=== PATIENT | female | born 1980 | race Caucasian/White ===

== ENCOUNTER 2016-11-07 11:59 | Inpatient (IN) | payer BC, OTHER ==
[2016-11-07] MEDS ORDERED: TERBUTALINE 1 MG/ML VIAL SQ PRN (12:47)
[2016-11-07] MEDS ORDERED: METHYLERGONOVINE 0.2 MG/ML 1 ML AMP IM PRN (12:47)
[2016-11-07] MEDS ORDERED: CLINDAMYCIN 900 MG in DEXTROSE 5% IN WATER 50 ML IVPB STA ×2 (12:47)
[2016-11-07] MEDS ORDERED: LIDOCAINE 1% (PF) 10 MG/ML (30 ML SDV) SQ PRN (12:47)
[2016-11-07] MEDS ORDERED: OXYTOCIN 10 UNIT/ML 1 ML VIAL IM PRN (12:47)
[2016-11-07] MEDS ORDERED: CARBOPROST TROMETHAMINE 250 MCG/ML 1 ML AMP IM PRN (12:47)
[2016-11-07 12:58] LABS: Appearance,Urine Clear (Clear); Bilirubin,Urine Negative (Negative); Glucose,Urine (UA) Negative (Negative); Ketones,Urine Negative (Negative); Leukocyte Esterase,Urine Large (Negative); Nitrite,Urine Negative (Negative); Protein,Urine Negative (Negative); Specific Gravity,Urine 1.008 (1.001-1.035); Urobilinogen,Urine <2.0 mg/dL (<2.0)
[2016-11-07 12:59] LABS: Bacteria,Urine Rare /hpf; Mucus,Urine Rare /hpf; Particle Count 4206; RBC,Urine 2 /hpf (0-5); Squamous Epithelial Cell,Urine 1 /hpf (0-4); UA Billing (MACRO vs. MICRO) MICRO; WBC,Urine 11 /hpf (0-5)
[2016-11-07] MEDS ORDERED: LACTATED RINGERS 1,000 ML IV SCH (13:00)
[2016-11-07] MEDS ORDERED: OXYTOCIN 30 UNITS/500 ML NS 30 UNIT in SALINE 1 500ML.BAG IV SCH ×2 (13:00→20:30)
[2016-11-07] MEDS ORDERED: SODIUM CHLORIDE 0.9% IVPB ONE ×2 (13:12→13:30)
[2016-11-07] MEDS ORDERED: DESMOPRESSIN IVPB ONE ×2 (13:12→13:30)
[2016-11-07 13:27] LABS: Anisocytosis Slight; Basophils % (A) 0 %; CH 23.9; CHCM 29.9; Eosinophils # (A) 0.1 k/uL (0-0.7); Eosinophils % (A) 1 %; HDW 3.74; HGB 9.5 gm/dL (11.4-16.0); Hypochromasia Marked; Luc # (Auto) 0.19; Luc % (Auto) 3; Lymphocytes # (A) 1.1 k/uL (1.0-4.8); Lymphocytes % (A) 15 %; MCHC 29.7 g/dL (31.0-37.0); MCV 80.7 fL (80.0-100.0); Mean Platelet Volume 7.2; Microcytosis Slight; Monocytes # (A) 0.4 k/uL (0-1.0); Monocytes % (A) 5 %; Neutrophils # (A) 5.7 k/uL (1.3-7.7); Neutrophils % (A) 76 %; Poikilocytosis Slight; RBC 3.97 m/uL (3.80-5.40); RDW 18.2 % (11.5-15.5); WBC 7.4 k/uL (3.8-10.6); WBC (Perox) 7.97
[2016-11-07] MEDS ORDERED: SODIUM CHLORIDE 0.9% 1,000 ML IV SCH (13:30)
[2016-11-07 14:20] VITALS: BMI 23.8
[2016-11-07] MEDS ORDERED: ONDANSETRON 4 MG/2 ML VIAL IM STA (16:41)
[2016-11-07] MEDS ORDERED: ONDANSETRON 4 MG/2 ML VIAL IVP STA (16:49)
--- NOTE | 2016-11-07 16:59 | P.HPOB ---
History of Present Illness H&P Date: 11/07/16 Chief Complaint: Contractions, no care. This patient is a 36-year-old 7 para 5 female with stated estimated date of confinement of 11/02/2016 who presents to labor and delivery with complaints of regular painful contractions. Patient's history is such that she had limited care with Dr. Roman and he subsequently referred her to maternal- medicine and hematology due to her complicated , von Willebrand's disease. Patient states that she did not follow up with any of these instructions. Patient reports having type II von Willebrand's disease and had 5 other vaginal deliveries at a [facility] [place]. Patient is uncertain as to whether she received any DDAVP with these deliveries but does recall receiving a blood transfusion somewhere around her fourth due to severe anemia, not secondary to bleeding. Patient did have an appointment with Dr. Menendez in [place] however did not go to that appointment as well. Patient was in labor and delivery here on November [address] Schofield. At that time a limited pelvic ultrasound showed normal placenta but there was no comment on estimated weight or amniotic fluid. Patient' s cervix at that visit was 1 cm dilated and she is now 4-5 cm dilated and thought to be in active labor. Patient has not received any genetic testing. Review of Systems Constitutional: Denies chills, Denies fever Ears, nose, mouth and throat: Denies headache, Denies sore throat Cardiovascular: Denies chest pain, Denies shortness of breath Respiratory: Denies cough Gastrointestinal: Denies abdominal pain, Denies diarrhea, Denies nausea, Denies vomiting Genitourinary: Reports Menstruation: Reports amenorrhea Musculoskeletal: Denies myalgias Integumentary: Denies pruritus, Denies rash Neurological: Denies numbness, Denies weakness Hematologic/Lymphatic: Reports as per HPI (Patient states she has type II von Willebrand's disease) Past Medical History Past Medical History: Asthma Additional Past Medical History / Comment(s): Type II von Willebrand's disease, per patient. History of Any Multi-Drug Resistant Organisms: None Reported Past Surgical History: No Surgical Hx Reported Additional Past Surgical History / Comment(s): [place] tooth extraction. Past Anesthesia/Blood Transfusion Reactions: No Reported Reaction Past Psychological History: No Psychological Hx Reported Smoking Status: Never smoker Past Alcohol Use History: None Reported Past Drug Use History: None Reported Medications and Allergies Home Medications Medication Instructions Recorded Confirmed Type Vit#84/Iron/FA#1/Dha 1 each PO DAILY 08/24/16 11/07/16 History [Prenate Essential Softgel] Allergies Allergy/AdvReac Type Severity Reaction Status Date / Time aspirin Allergy Unknown Verified 11/01/16 23:57 ibuprofen [From Motrin] Allergy Unknown Verified 11/01/16 23:57 Penicillins Allergy Anaphylaxis Verified 11/01/16 23:57 shell fish Allergy Anaphylaxis Uncoded 11/01/16 23:57 Exam - Vital Signs Vital signs: Vital Signs Temp Pulse Resp BP 11/07/16 12:21 97.6 F 86 18 136/87 Intake and Output 11/07/16 11/07/16 11/07/16 06:59 14:59 22:59 Other: Weight 60 kg Patient Weight 11/08/16 06:59 Weight 60 kg - OBG Physical Exam Abdomen: bowel sounds normal, no diffuse tenderness, no bruit present, no guarding noted, no hepatomegaly, no splenomegaly, no mass Vagina: normal moisture, no discharge Cervix: no lesion (Cervix is 4-5 cm dilated 50% effaced -2 station vertex. Artificial rupture membranes shows meconium-stained fluid), no discharge Uterus: enlarged (Fundal height is consistent with a term ) Results Blood type is a positive, hemoglobin was 9.5. Result Diagrams: 11/07/16 13:10 Abnormal Lab Results - Last 24 Hours (Table) 11/07/16 11/07/16 Range/Units 12:20 13:10 Hgb 9.5 L (11.4-16.0) gm/dL Hct 32.0 L (34.0-46.0) % MCH 24.0 L (25.0-35.0) pg MCHC 29.7 L (31.0-37.0) g/dL RDW 18.2 H (11.5-15.5) % Urine Blood Small H (Negative) Ur Leukocyte Esterase Large H (Negative) Urine WBC 11 H (0-5) /hpf Urine Bacteria Rare H (None) /hpf Urine Mucus Rare H (None) /hpf Assessment and Plan (1) Non-compliant patient Narrative/Plan: This is a 36-year-old 7 para 5 female estimated gestational age approximately 40-5/7 weeks based on patient's history with active labor. Patient is been noncompliant with her care and has had limited or no care. Patient has known von Willebrand's disease. Patient also has meconium- stained fluid on artificial rupture. Group B strep status is unknown. I did discuss this patient with maternal medicine, Dr. Sarahy Horne, and with hematology. Plan at this time is to administer IV DDAVP at 0.3 mcgs per kilogram, IV antibiotics due to unknown group B strep status, and anticipate vaginal delivery. [employer] will be alerted and social worker psychiatric notified due to the lack of care. Status: Acute (2) Third trimester Status: Acute (3) Normal labor Status: Acute (4) Von Willebrand disease Status: Acute (5) Meconium in amniotic fluid affecting management of mother Status: Acute
[2016-11-07] MEDS ORDERED: BUTORPHANOL 1 MG/ML 1 ML VIAL IV ONE (17:35)
--- NOTE | 2016-11-07 19:33 | P.PROBDLV ---
Vaginal Delivery Note - . Vaginal Delivery Note: Normal spontaneous vaginal delivery viable female Apgars 9 and 9 delivery time is 1918 hrs. Please see dictated H&P on this patient's admission. Brief summary this is a 36 -year-old 7 para 5 female 40-5/7 weeks' gestation by stated last menstrual period who presents to labor and delivery with complaints of regular painful contractions. Patient has had no significant care in her has been complicated by von Willebrand's disease. Patient essentially has been noncompliant with all of her physician visits that she did have. On admission patient is 4-5 cm dilated. She is given 18 g of DDAVP per hematology and maternal- medicine recommendations. Patient is artificial rupture membranes for light meconium-stained fluid. She is also given IV clindamycin secondary to unknown group B strep status. Patient's labor does progress she received one dose of intrapartum Stadol for pain control. Patient gets to complete pushes the head to the perineum. Posterior perineum was supported and we have controlled delivery of the 's head over the intact perineum. The nurse art historian is present for delivery. With gentle downward traction we have delivery the anterior and posterior shoulder and rest this 's body. This is a vigorous viable female Apgars 9 and 9 delivery time is 1918 hrs. After delivery of the the umbilical cord is doubly clamped and cut. The placenta spontaneously delivered intact and immediately she is given one dose of Methergine and IV Pitocin to prevent any bleeding. Bleeding does appear normal and estimated blood loss is 150 mL. Inspection of the perineum shows a first-degree laceration the patient does refuse to have this repaired. I did discuss with her that this may not heal properly and she could have persistent pain if it heals improperly due to the lack of suture. Patient again is offered a repair and declines. At this point all counts are correct 3. There are no complications. and mother are stable delivery room.
[2016-11-07] MEDS ORDERED: Acetaminophen-Codeine 300-30mg TAB PO PRN ×2 (19:34)
[2016-11-07] MEDS ORDERED: ZOLPIDEM 5 MG TAB PO PRN (19:34)
[2016-11-07] MEDS ORDERED: IBUPROFEN 600 MG TAB PO PRN (19:34)
[2016-11-07] MEDS ORDERED: diphenhydrAMINE 25 MG CAP PO PRN (19:34)
[2016-11-07] MEDS ORDERED: SIMETHICONE 80 MG CHEWABLE PO PRN (19:34)
[2016-11-07] MEDS ORDERED: HYDROCORTISONE 2.5% RECTAL CREAM 30 GM TUBE RECTAL PRN (19:34)
[2016-11-07] MEDS ORDERED: diphenhydrAMINE 50 MG/ML 1 ML VIAL IVP PRN (19:34)
[2016-11-07] MEDS ORDERED: BENZOCAINE/MENTHOL SPRAY 1 GM/SPRAY AEROSOL TOPICAL PRN (19:34)
[2016-11-07] MEDS ORDERED: WITCH HAZEL 1 EACH MED..PAD TOPICAL PRN (19:34)
[2016-11-07] MEDS ORDERED: LANOLIN CREAM 5 GM TUBE TOPICAL PRN (19:34)
[2016-11-07] MEDS ORDERED: BISACODYL 10 MG SUPP RECTAL PRN (19:34)
[2016-11-07] MEDS: SENNOSIDES-DOCUSATE SODIUM 1 EACH TAB PO SCH (20:24)
[2016-11-07] MEDS ORDERED: CLINDAMYCIN 900 MG in DEXTROSE 5% IN WATER 50 ML IVPB SCH ×2 (21:00)
[2016-11-07] MEDS: METHYLERGONOVINE 0.2 MG TAB PO SCH (22:02)
[2016-11-08] MEDS: ACETAMINOPHEN TAB 325 MG TAB PO PRN ×4 (05:08→19:41)
[2016-11-08 05:55] LABS: Anisocytosis Slight; Basophils % (A) 0 %; CH 23.4; CHCM 30.3; Eosinophils % (A) 0 %; HCT 27.7 % (34.0-46.0); HDW 3.77; HGB 8.8 gm/dL (11.4-16.0); Hypochromasia Marked; Luc # (Auto) 0.22; Luc % (Auto) 2; Lymphocytes # (A) 1.1 k/uL (1.0-4.8); Lymphocytes % (A) 9 %; MCH 24.6 pg (25.0-35.0); MCHC 31.7 g/dL (31.0-37.0); MCV 77.5 fL (80.0-100.0); Mean Platelet Volume 8.7; Microcytosis Slight; Monocytes # (A) 0.5 k/uL (0-1.0); Monocytes % (A) 5 %; Neutrophils # (A) 9.4 k/uL (1.3-7.7); Neutrophils % (A) 84 %; Poikilocytosis Slight; RBC 3.57 m/uL (3.80-5.40); RDW 17.8 % (11.5-15.5); WBC 11.3 k/uL (3.8-10.6); WBC (Perox) 11.53
--- NOTE | 2016-11-08 06:05 | P.PNOBGVD ---
Subjective - Subjective Patient reports: Reports appetite normal, Reports voiding normally, Reports pain well controlled, Reports ambulating normally : doing well Objective - Latest Vital Signs Latest vital signs: Vital Signs Temp Pulse Resp BP Pulse Ox 11/08/16 04:00 98.6 F 93 16 131/79 11/08/16 00:00 98.5 F 73 16 135/90 11/07/16 21:33 97.3 F L 80 18 140/69 11/07/16 21:03 97.3 F L 71 18 148/76 11/07/16 20:33 96.8 F L 81 18 139/66 11/07/16 20:18 97.2 F L 81 18 131/85 11/07/16 20:03 97.3 F L 84 18 101/66 11/07/16 19:48 96.7 F L 98 18 142/77 11/07/16 19:33 96.8 F L 90 18 139/78 100 11/07/16 12:21 97.6 F 86 18 136/87 Intake and Output 11/07/16 11/07/16 11/08/16 14:59 22:59 06:59 Other: Voiding Method Toilet # Voids 1 1 Weight 60 kg Patient Weight 11/08/16 06:59 Weight 60 kg - Exam Lungs: bilateral: normal Chest: Normal S1, Normal S2 Extremities: Present: normal Abdomen: Present: normal appearance, soft Uterus: Present: normal, firm - Labs Labs: Abnormal Lab Results - Last 24 Hours (Table) 11/07/16 11/07/16 11/08/16 Range/Units 12:20 13:10 05:43 WBC 11.3 H (3.8-10.6) k/uL RBC 3.57 L (3.80-5.40) m/uL Hgb 9.5 L 8.8 L (11.4-16.0) gm/dL Hct 32.0 L 27.7 L (34.0-46.0) % MCV 77.5 L (80.0-100.0) fL MCH 24.0 L 24.6 L (25.0-35.0) pg MCHC 29.7 L (31.0-37.0) g/dL RDW 18.2 H 17.8 H (11.5-15.5) % Plt Count 137 L (150-450) k/uL Neutrophils # 9.4 H (1.3-7.7) k/uL Urine Blood Small H (Negative) Ur Leukocyte Esterase Large H (Negative) Urine WBC 11 H (0-5) /hpf Urine Bacteria Rare H (None) /hpf Urine Mucus Rare H (None) /hpf Assessment and Plan (1) Non-compliant patient Narrative/Plan: day #1. Patient is resting without complaints. She is having normal lochia. Repeat CBC is pending. My impression this is a normal course. There is no evidence of excessive bleeding. Patient may want to go home later today. I did put in a consultation for hematology to establish care with them for her von Willebrand's disease. Patient may go home later tonight or tomorrow. Current Visit: Yes Status: Acute Code(s): O09.899 - SUPERVISION OF OTHER HIGH RISK PREGNANCIES, UNSP TRIMESTER; Z91.19 - PATIENT'S NONCOMPLIANCE W OTH MEDICAL TREATMENT AND REGIMEN SNOMED Code(s): 26824045 (2) Third trimester Current Visit: Yes Status: Acute Code(s): Z33.1 - STATE, INCIDENTAL SNOMED Code(s): 96736031 (3) Normal labor Current Visit: Yes Status: Acute Code(s): O80 - ENCOUNTER FOR FULL-TERM UNCOMPLICATED DELIVERY; Z37.9 - OUTCOME OF DELIVERY, UNSPECIFIED SNOMED Code(s ): 52250672 (4) Von Willebrand disease Current Visit: Yes Status: Acute Code(s): D68.0 - VON WILLEBRAND'S DISEASE SNOMED Code(s): 736980114 (5) Meconium in amniotic fluid affecting management of mother Current Visit: Yes Status: Acute Code(s): O36.8990 - MATERNAL CARE FOR OTH PROBLEMS, UNSP TRIMESTER, UNSP SNOMED Code(s): 15418521
--- NOTE | 2016-11-08 06:09 | P.DS ---
Providers Date of admission: 11/07/16 12:44 Expected date of discharge: 11/08/16 Attending physician: Papa Fountain Consults: 11/07/16 19:37 Consult Physician Routine Consulting Provider: Gertrude Menendez Consult Reason/Comments: Von Willebrand disease Do you want consulting provider notified?: Yes, Notify in am Primary care physician: Stated None - Discharge Diagnosis(es) (1) Non-compliant patient Current Visit: Yes Status: Acute (2) Third trimester Current Visit: Yes Status: Acute (3) Normal labor Current Visit: Yes Status: Acute (4) Von Willebrand disease Current Visit: Yes Status: Acute (5) Meconium in amniotic fluid affecting management of mother Current Visit: Yes Status: Acute Hospital Course: Please see dictated H&P on this patient's admission. In summary, this is a 36- year-old 7 para 5 female 40-5/7 weeks' gestation with no care and noncompliance with care who presented to labor and delivery in active labor. Due to the patient's von Willebrand's disease I did do a consultation with maternal- medicine and hematology and she was given DDAVP in labor. Patient went on to have a vaginal delivery of viable female infant without incident. Of note patient did have a laceration at the time of delivery for which she refused repair. day 1 patient was having normal lochia and was considering going home later in the day. I did consult hematology to establish care. Patient will follow up with Dr. Roman for her 6 weeks checkup initiated her care. She did not request any medications on discharge. Procedures: Normal spontaneous vaginal delivery Patient Condition at Discharge: Good Plan - Discharge Summary Discharge Medication List Levalbuterol Nebulized [Xopenex Nebulized] 1.25 mg INHALATION TID PRN #25 neb [Rx] Vit#84/Iron/FA#1/Dha [Prenate Essential Softgel] 1 each PO DAILY [History] Follow up Appointment(s)/Referral(s): Freddie Roman DO [REFERRING] - 6 Weeks Patient Instructions/Handouts: Vaginal Delivery (DC) Activity/Diet/Wound Care/Special Instructions: No intercourse or anything per vagina for 6 weeks. Please call if any fever, chills, excessive vaginal bleeding, and/or abdominal pain. Please follow up with your primary [facility] Dr. Roman for a checkup in 6 weeks. Discharge Disposition: HOME SELF-CARE
[2016-11-08] MEDS: METHYLERGONOVINE 0.2 MG TAB PO SCH ×2 (08:35→15:57)
[2016-11-08] MEDS: SENNOSIDES-DOCUSATE SODIUM 1 EACH TAB PO SCH ×2 (08:35→22:03)
[2016-11-08 11:54] VITALS: RESP 16
--- NOTE | 2016-11-08 12:37 | P.MSEPDOC ---
Presenting Problems - Arrival Data Date of Arrival on Unit: 11/07/16 Time of Arrival on Unit: 13:00 Mode of Transport: Ambulatory - Complaint OB-Reason for Admission/Chief Complaint: Possible Onset of Labor Comment: spotting- brown since last night, contractions 8 min apart. pt reports contractions since 16 weeks gestation. Medical History - Information : 6 Para: 5 Term: 1 : 4 Abortions: Spontaneous or Elective: 1 Number of Living Children: 5 - Gestational Age Expected Date of Delivery: 11/02/16 Gestational Age by MING (wks/days): 40 Weeks and 6 Days - History Complications: Prior Comment: DOM, pt sent to high risk and refused to go, Dr Roman will not see her bc she was referred to [facility]. Review of Systems - Review of Systems Constitutional: No problems Breast: No problems ENT: No problems Cardiovascular: No problems Respiratory: No problems Gastrointestinal: No problems Genitourinary: No problems Musculoskeletal: No problems Neurological: No problems Skin: No problems Comment: Hx Von Wildebrandts disease. Vital Signs - Temperature Temperature: 97.7 F Temperature Source: Oral - Pulse Right Sitting Brachial Pulse Rate: 78 Pulse Assessment Method: Palpation - Respirations Respiratory Rate: 16 Oxygen Delivery Method: Room Air O2 Sat by Pulse Oximetry: 95 - Blood Pressure Right Arm Sitting Blood Pressure: 128/81 Blood Pressure Mean: 96 Blood Pressure Source: Automatic Cuff Medical Screen Scoring (Pre) - Uterine Contractions Frequency: > 5 minutes apart = 1 - Maternal Vital Signs Maternal Temperature: N/A Maternal Blood Pressure: N/A Signs of Preeclampsia: N/A Maternal Respirations: N/A - Maternal Trauma Maternal Trauma: N/A - Assessment Baseline FHR: 115 Heart Rate - NICHD Category: Category I (Normal) = 0 NST: Reactive - Total Score Total Score (Pre): 1 - Level of Risk Level of Risk: Low (0-5) Medical Screen Scoring (Post) - Cervical Exam Dilation: 4-7 cm = 2 Effacement: More than 50% = 2 Membranes: Intact - Uterine Contractions Frequency: > or = 36 weeks =2 Duration: > 40 seconds = 2 - Total Score Total Score (Post): 8 Physician Notification (Post) - Physician Notified Physician Notified Date: 11/07/16 Physician Notified Time: 13:00 Physician/Practitioner Notified:: Dr Fountain - Notification Comment Comment: admit, labor/ Disposition - Disposition OB Disposition: Admit I agree with the RN Medical Screening Exam: Yes Risk & Benefit of care provided described in d/c instruction: Yes Diagnosis: OTHER SPECIFIED COMPLICATIONS OF LABOR AND DELIVERY
--- NOTE | 2016-11-08 22:49 | P.CONS ---
History of Present Illness - Reason for Consult Consult date: 11/08/16 h/o von Willebrand's disease type IIA - History of Present Illness Ms Limon is a pleasant WF, admitted with labour at term, with her 5th . She has a h/o von Willebrand's disease type IIA, per the pt. SHe was diagnosed while in the , in the . Her w/u was started in [facility], and completed in [place]. She was followed by Hematology during her service, but has not had any f/u since leaving the and moving to [place]. She denies any major bleeding issues, other than heavy periods. She has not had any unusual bleeding associated with her prior pregnancies, dental work, or related to her stool or urine. She has not had major bruising or intra articular bleeding. The case was d/w Dr Fountain, and the pt received DDAVP. She had a normal vaginal delivery. She has not had any abnormal post bleeding so far. She has a h/o iron deficiency anemia, which is longstanding. She has not been able to tolerate PO iron. Review of Systems Constitutional: Reports fatigue Eyes: denies blurred vision, denies pain Ears: deny: decreased hearing, ear discharge, earache, tinnitus Ears, nose, mouth and throat: Denies headache, Denies sore throat Cardiovascular: Reports dyspnea on exertion, Denies chest pain, Denies shortness of breath Respiratory: Denies cough Gastrointestinal: Denies abdominal pain, Denies diarrhea, Denies nausea, Denies vomiting Genitourinary: Denies dysuria, Denies hematuria Menstruation: Reports period heavy Musculoskeletal: Denies myalgias Integumentary: Denies pruritus, Denies rash Neurological: Denies numbness, Denies weakness Psychiatric: Denies anxiety, Denies depression Endocrine: Reports fatigue, Reports weight change Hematologic/Lymphatic: Reports as per HPI Past Medical History Past Medical History: Asthma Additional Past Medical History / Comment(s): Type II von Willebrand's disease, per patient. History of Any Multi-Drug Resistant Organisms: None Reported Past Surgical History: No Surgical Hx Reported Additional Past Surgical History / Comment(s): [place] tooth extraction. Past Anesthesia/Blood Transfusion Reactions: No Reported Reaction Past Psychological History: No Psychological Hx Reported Smoking Status: Never smoker Past Alcohol Use History: None Reported Past Drug Use History: None Reported - Past Family History Mother Family Medical History: No Reported History Medications and Allergies Home Medications Medication Instructions Recorded Confirmed Type Vit#84/Iron/FA#1/Dha 1 each PO DAILY 08/24/16 11/07/16 History [Prenate Essential Softgel] Allergies Allergy/AdvReac Type Severity Reaction Status Date / Time aspirin Allergy Unknown Verified 11/01/16 23:57 ibuprofen [From Motrin] Allergy Unknown Verified 11/01/16 23:57 Penicillins Allergy Anaphylaxis Verified 11/01/16 23:57 shell fish Allergy Anaphylaxis Uncoded 11/01/16 23:57 Physical Exam Vitals: Vital Signs Temp Pulse Resp BP Pulse Ox 11/08/16 16:00 97.8 F 89 16 121/77 11/08/16 12:37 97.7 F 78 16 128/81 95 11/08/16 11:51 97.7 F 78 16 128/81 95 11/08/16 07:30 98.5 F 76 17 130/88 96 11/08/16 04:00 98.6 F 93 16 131/79 11/08/16 00:00 98.5 F 73 16 135/90 Intake and Output 11/08/16 11/08/16 11/08/16 06:59 14:59 22:59 Intake Total 240 Balance 240 Intake: Oral 240 Other: # Voids 1 1 2 # Bowel Movements 0 - Constitutional General appearance: no acute distress - EENT Eyes: EOMI ENT: hearing grossly normal, normal oropharynx - Neck Neck: no lymphadenopathy - Respiratory Respiratory: bilateral: CTA - Cardiovascular Rhythm: regular Heart sounds: normal: S1, S2 - Gastrointestinal General gastrointestinal: distended, normal bowel sounds, soft - Integumentary Integumentary: normal - Neurologic Neurologic: CNII-XII intact - Musculoskeletal Musculoskeletal: strength equal bilaterally - Psychiatric Psychiatric: A&O x's 3 Results CBC & Chem 7: 11/08/16 05:43 Labs: Abnormal Lab Results - Last 24 Hours (Table) 11/08/16 Range/Units 05:43 WBC 11.3 H (3.8-10.6) k/uL RBC 3.57 L (3.80-5.40) m/uL Hgb 8.8 L (11.4-16.0) gm/dL Hct 27.7 L (34.0-46.0) % MCV 77.5 L (80.0-100.0) fL MCH 24.6 L (25.0-35.0) pg RDW 17.8 H (11.5-15.5) % Plt Count 137 L (150-450) k/uL Neutrophils # 9.4 H (1.3-7.7) k/uL Assessment and Plan (1) Von Willebrand disease Narrative/Plan: The pt's history is as noted. This is per the pt, and we do not have documentation of the same. Type IIA is due to decreased high molecular weight multimers, and pts with the same may have an increased risk of bleeding, with lower response to DDAVP. However, the risk can be quite variable, and can be estimated by the clinical history. The pt has not had any major bleeding or bruising other than heavy. She has not required any intervention with her prior pregnancies. Thus she is at low risk to have complications, and also more likely to respond to DDAVP. - Thus at this time additional intervention is likely not required, unless any unusual post bleeding occurs. She already has an appt with Dr Menendez to establish f/u as an inpt. - At least 2 of her children apparently have the same condition, with no h/o unusual bleeding. Re this infant, unless she has unusual bleeding from the umbilical stump, or in the extremities on weight bearing etc, testing can be done prior to her starting her periods, unless she is to have any major invasive procedures. Status: Acute (2) Iron deficiency anemia due to chronic blood loss Narrative/Plan: Thsi is most likely due to chronic heavy menstrual losses. There is increased risk of GI bleed with Type IIA vWD, but the pt has no clinical evidence of he same. She has been unable to tolerate PO iron. Her current Hgb is acceptable. She can be treated with IV iron as an outpt Status: Acute
--- NOTE | 2016-11-09 06:40 | P.PNOBGVD ---
Subjective - Subjective Patient reports: Reports appetite normal, Reports voiding normally, Reports pain well controlled, Reports ambulating normally : doing well Objective - Latest Vital Signs Latest vital signs: Vital Signs Temp Pulse Resp BP Pulse Ox 11/09/16 00:00 97.7 F 87 16 128/74 11/08/16 16:00 97.8 F 89 16 121/77 11/08/16 12:37 97.7 F 78 16 128/81 95 11/08/16 11:51 97.7 F 78 16 128/81 95 11/08/16 07:30 98.5 F 76 17 130/88 96 Intake and Output 11/08/16 11/08/16 11/09/16 14:59 22:59 06:59 Intake Total 240 Balance 240 Intake: Oral 240 Other: # Voids 1 2 1 # Bowel Movements 0 - Exam Lungs: bilateral: normal Chest: Normal S1, Normal S2 Extremities: Present: normal Abdomen: Present: normal appearance, soft Uterus: Present: normal, firm Assessment and Plan (1) Non-compliant patient Narrative/Plan: Patient is resting without complaints. Vital signs are stable she's afebrile and she is having normal lochia. Patient seen by hematology yesterday and felt be stable for discharge home follow up as an outpatient. Patient was also seen by pediatric social worker. Plan today is to continue routine care discharge home later today. Current Visit: Yes Status: Acute Code(s): O09.899 - SUPERVISION OF OTHER HIGH RISK PREGNANCIES, UNSP TRIMESTER; Z91.19 - PATIENT'S NONCOMPLIANCE W OTH MEDICAL TREATMENT AND REGIMEN SNOMED Code(s): 24947517 (2) Third trimester Current Visit: Yes Status: Acute Code(s): Z33.1 - STATE, INCIDENTAL SNOMED Code(s): 28213846 (3) Normal labor Current Visit: Yes Status: Acute Code(s): O80 - ENCOUNTER FOR FULL-TERM UNCOMPLICATED DELIVERY; Z37.9 - OUTCOME OF DELIVERY, UNSPECIFIED SNOMED Code(s ): 62238800 (4) Von Willebrand disease Current Visit: Yes Status: Acute Code(s): D68.0 - VON WILLEBRAND'S DISEASE SNOMED Code(s): 330563802 (5) Meconium in amniotic fluid affecting management of mother Current Visit: Yes Status: Acute Code(s): O36.8990 - MATERNAL CARE FOR OTH PROBLEMS, UNSP TRIMESTER, UNSP SNOMED Code(s): 47586800
[2016-11-09 07:25] VITALS: BP 119/73; PULSE 96; TEMP 97.9
[2016-11-09] MEDS: SENNOSIDES-DOCUSATE SODIUM 1 EACH TAB PO SCH (09:44)
== END 2016-11-09 14:00 | disposition home or self-care (01) | DRG 775 ==
LOC: FBPOP 11:59 → 4FBP 12:44
PROVIDERS: ADMIT Obstetrics & Gynecology; ATTEND Obstetrics & Gynecology
PROC: 10E0XZZ Delivery of Products of Conception, External Approach (ICD-10-PCS; principal; 2016-11-07)
PROC: 10907ZC Drainage of Amniotic Fluid, Therapeutic from Products of Conception, Via Natural or Artificial Opening (ICD-10-PCS; 2016-11-07)
DX: O70.0 First degree perineal laceration during delivery (principal); D68.0 Von Willebrand disease; O99.12 Other diseases of the blood and blood-forming organs and certain disorders involving the immune mechanism complicating childbirth; O48.0 Post-term pregnancy; O77.0 Labor and delivery complicated by meconium in amniotic fluid; O99.52 Diseases of the respiratory system complicating childbirth; O09.523 Supervision of elderly multigravida, third trimester; J45.909 Unspecified asthma, uncomplicated; O09.30 Supervision of pregnancy with insufficient antenatal care, unspecified trimester; O99.02 Anemia complicating childbirth; D50.0 Iron deficiency anemia secondary to blood loss (chronic); Z37.0 Single live birth; Z91.19 Patient's noncompliance with other medical treatment and regimen; Z3A.40 40 weeks gestation of pregnancy; Z88.6 Allergy status to analgesic agent; Z88.0 Allergy status to penicillin; Z91.013 Allergy to seafood
CPT/HCPCS: 59025; 80306; 81001; 85025; 86850; 86900; 86901; 88307; 99213

== ENCOUNTER 2018-07-16 14:43 | Emergency (ER) | payer OTHER ==
--- NOTE | 2018-07-16 15:44 | ED ---
General Adult HPI - General Chief complaint: Shortness of Breath Stated complaint: SOB Chest pain Time Seen by Provider: 07/16/18 15:06 Source: patient, RN notes reviewed Mode of arrival: ambulatory Limitations: no limitations - History of Present Illness Initial comments: Patient is a 38-year-old female with history of asthma and Type II von Willebrand's disease who presents the emergency department with complaints of shortness of breath that started this morning. She also reports chest pain that is worse with a deep breath; denies radiation. 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 She believes this allergy is causing her symptoms because she has had similar episodes in the past. She reports that she is out of her albuterol inhaler and that her primary care doctor's office is closed today. She reports that she has had a heart murmur during in the past. Denies history of smoking, diabetes, hypertension ( except hypertension during ), taking hormones, and blood clots. Denies any additional pulmonary or cardiac diseases aside from ones already mentioned. Patient denies any recent fever, chills, sweating, cough, back pain, abdominal pain, nausea or vomiting, numbness or tingling, headaches or visual changes, or any other complaints. - Related Data Home Medications Medication Instructions Recorded Confirmed Albuterol Inhaler [Ventolin Hfa 1 - 2 puff INHALATION RT-Q6H PRN 07/16/18 Inhaler] Previous Rx's Medication Instructions Recorded Albuterol Inhaler [Ventolin Hfa 1 - 2 puff INHALATION Q4-6H PRN #1 07/16/18 Inhaler] inhaler Allergies Allergy/AdvReac Type Severity Reaction Status Date / Time aspirin Allergy Unknown Verified 07/16/18 15:15 egg Allergy Unknown Verified 07/16/18 15:15 ibuprofen [From Motrin] Allergy Unknown Verified 07/16/18 15:15 Penicillins Allergy Anaphylaxis Verified 07/16/18 15:15 Iodinated Contrast- Oral and AdvReac Unknown Verified 07/16/18 15:15 IV Dye shell fish Allergy Anaphylaxis Uncoded 07/16/18 14:59 Review of Systems ROS Statement: Those systems with pertinent positive or pertinent negative responses have been documented in the HPI. ROS Other: All systems not noted in ROS Statement are negative. Past Medical History Past Medical History: Asthma Additional Past Medical History / Comment(s): Type II von Willebrand's disease, per patient. History of Any Multi-Drug Resistant Organisms: None Reported Past Surgical History: No Surgical Hx Reported Additional Past Surgical History / Comment(s): [place] tooth extraction. Past Anesthesia/Blood Transfusion Reactions: No Reported Reaction Past Psychological History: No Psychological Hx Reported Smoking Status: Never smoker - Past Family History Mother Family Medical History: No Reported History General Exam Limitations: no limitations General appearance: alert, in no apparent distress Head exam: Present: atraumatic, normocephalic Eye exam: Present: normal appearance, PERRL ENT exam: Present: normal oropharynx, TM's normal bilaterally, normal external ear exam, other (Nasal turbinates swollen with small amount of nasal discharge.) Respiratory exam: Present: decreased breath sounds (Mildy decreased in lower lung lew. ) Cardiovascular Exam: Present: regular rate, normal rhythm, normal heart sounds Neurological exam: Present: alert, oriented X3 Psychiatric exam: Present: normal affect, normal mood Skin exam: Present: warm, dry Course Vital Signs 07/16/18 07/16/18 07/16/18 14:57 15:24 16:11 Temperature 98.3 F Pulse Rate 92 74 Respiratory 16 22 16 Rate Blood Pressure 106/72 O2 Sat by Pulse 100 Oximetry EKG Findings - EKG Comments: EKG Findings:: EKG on July 16, 2018. Vent. rate 68 bpm. OH interval 122 ms. QRS duration 84 ms. QT/QTc 400/425 ms. P-R-T axes 67 63 53. Normal sinus rhythm. Normal ECG Medical Decision Making - Medical Decision Making Patient presents with asthma and allergy symptoms. EKG is normal. Given Claritin , Pepcid, Solu-medrol and one Duoneb treatment here. Patient refused Benadryl. Patient reports feeling much better after treatment. Will give a prescription for albuterol inhaler as patient states she is out and her PCP's office is closed today. Case discussed in detail with attending physician Dr. Mason. Disposition Clinical Impression: Asthma Disposition: HOME SELF-CARE Condition: Good Instructions: Asthma (ED) Additional Instructions: Follow-up with your PCP in 1-2 days. Return to the emergency department if your symptoms worsen or any other concerns. Prescriptions: Albuterol Inhaler [Ventolin Hfa Inhaler] 1 - 2 puff INHALATION Q4-6H PRN #1 inhaler PRN Reason: Shortness Of Breath Is patient prescribed a controlled substance at d/c from ED?: No Referrals: Brennen Godinez MD [Primary Care Provider] - 1-2 days Time of Disposition: 17:50
[2018-07-16] MEDS ORDERED: FAMOTIDINE 20 MG/2 ML VIAL IV STA (15:59)
[2018-07-16] MEDS ORDERED: IPRATROPIUM-ALBUTEROL 3 ML NEB INHALATION STA (16:00)
[2018-07-16] MEDS ORDERED: methylPREDNISolone SOD SUCCI 125 MG/2 ML VIAL IV STA (16:00)
[2018-07-16] MEDS ORDERED: LORATADINE 10 MG TAB PO STA (16:01)
[2018-07-16 18:00] VITALS: BP 112/77; PULSE 86; RESP 18; TEMP 98
== END 2018-07-16 17:59 | disposition home or self-care (01) ==
LOC: EC 14:43
DX: J45.909 Unspecified asthma, uncomplicated (principal); Z88.6 Allergy status to analgesic agent; Z88.0 Allergy status to penicillin; Z91.012 Allergy to eggs; Z91.041 Radiographic dye allergy status; Z91.013 Allergy to seafood
CPT/HCPCS: 94640; 93005; 99284; 96374; 96375; J2930